=== PATIENT | female | born 1965 | race Caucasian/White ===

== ENCOUNTER 2017-09-13 05:56 | Emergency (ER) | payer BC, OTHER ==
--- NOTE | 2017-09-13 06:20 | ERNOTE ---
Dizziness ER Record Date of Service: 09/13/17 Time Seen by Provider: 09/13/17 06:18 Source: patient Exam Limitations: no limitations Immunizations: IMMUNIZATION HX Immunizations Up to Date Yes History of Influenza Vaccine No Hx Pneumococcal Vaccination No Allergies/Adverse Reactions: Allergies Allergy/AdvReac Type Severity Reaction Status Date / Time No Known Allergies Allergy Unverified 09/19/12 18:05 Home Medications: HOME MEDICATIONS Acetaminophen [Tylenol Extra Strength] 1,000 mg PO PRN 09/19/12 [Last Taken 19/09 16:45] Acetaminophen/Diphenhydramine [Tylenol Pm Ex-Strength Caplet] 1 each PO HS 09/19 [Last Taken Unknown] Ibuprofen [Motrin] 400 mg PO PRN 09/19/12 [Last Taken 09/19/12 16:00] Triamterene/Hydrochlorothiazid [Dyazide 37.5/25] 1 cap PO QDIPM #20 capsule 05/23 [Last Taken Unknown] - History of Present Illness Narrative: 52 year old that had the sudden onset of being light headed and feeling weak in the calves. Denies any changes in vision, chest pain, shortness of breath, n/v, fevers, near syncope or focal weakness. She was able to walk up the stairs at her job, and felt mildly out of breath after reaching the top of the landing. Earlier experienced dry mouth and drank water. There was concern about her blood pressure since she has not been treating it. Date (Duration): 09/13/17 Time (Timing): 06:22 Timing and Duration: sudden onset Noted on awakening:: No Severity: max: moderate Severity: currently: mild Associated Symptoms: Present: weakness. Absent: nausea, vomiting, headache, numbness Sense of movement: Present: none Decreased ability to stand/walk:: Present: walks w/o assistance. Absent: cannot walk, cannot stand Usually:: Present: walks w/o assistance Modifying Factors - (Improves): Reports: nothing Modifying Factors - (Worsens): Reports: nothing Review of Systems - Review of Systems Constitutional: Present: no symptoms reported EYE: Present: no symptoms reported ENT: Present: no symptoms reported Respiratory: Present: no symptoms reported Cardiology: Present: no symptoms reported Gastrointestinal/Abdominal: Present: no symptoms reported Genitourinary: Present: no symptoms reported Musculoskeletal: Present: no symptoms reported Skin: Present: no symptoms reported Neurological: Present: no symptoms reported Endocrine: Present: no symptoms reported Hematologic/Lymphatic: Present: no symptoms reported Psych: Present: no symptoms reported - Patient's Past Medical History Patient History - Medical: No pertinent hx Patient History - Cardiac/Respiratory: Hypertension Patient History - Cancer: No Hx of Cancer Patient History - Surgical Procedures: Patient History - Other: None LMP (females 10-50): last week - Social History Living Situations: spouse Psych History: No pertinent hx Smoking Status: Never smoker Have you smoked in the past 12 months: No Do you dip or chew tobacco: No Alcohol Use: none Drug Use: none - Immunizations Immunizations Up to Date: Yes Hx Pneumococcal Vaccination: No History of Influenza Vaccine: No Physical Exam - Physical Exam General Appearance: Present: no apparent distress Head Exam: Present: normal inspection Eye Exam: Normal inspection: bilateral, PERRL: bilateral, EOMI: bilateral Ears, Nose, Throat: Present: normal ENT inspection Neck: Present: normal inspection Respiratory: Present: no respiratory distress Cardiovascular/Chest: Present: regular rate, rhythm Gastrointestinal/Abdominal: Present: nondistended Back Exam: Present: normal inspection Extremity Exam: Present: normal inspection Neurological Exam: Present: alert, oriented, normal mood/affect Skin Exam: Present: normal color, warm/dry ED Progress - Vital Signs Patient's Vital Signs:: I have reviewed the patient's vital signs. Vital Signs: Vital Signs 09/13/17 06:00 Temperature 37.0 C Pulse Rate 94 Respiratory 16 Rate Blood Pressure 187/107 O2 Sat by Pulse 99 Oximetry - EKG EKG: NSR EKG read: Interp. by me EKG Comments: rate 93, normal axis - Progress/Reassessment Chief Complaint: Dizziness Progress:: Improved Progress Note-Subjective: 09/13/17 07:26 Feels much better after drinking over one liter of water. 09/13/17 07:27 Will be started on Dyazide one cap per day. It was strongly recommended that she see a physician for follow up in the next 2-3 weeks. Departure Clinical Impression: Hypertension - Departure Disposition: Home self-care Condition: Fair Instructions: Hypertension, [id number] Print Language: Australian Additional Instructions: Check your blood pressure at least once per week and record the results. You will need to find a physician for follow up in the next 2-3 weeks. The ideal blood pressure should be below 130/70. Prescriptions: Triamterene/Hydrochlorothiazid [Dyazide 37.5/25] 1 cap PO QDIPM #20 capsule
[2017-09-13 06:25] LABS: Hemoglobin 14.7 gm/dL (12.5-16.0); Mean Corpuscular Hemoglobin 30.4 pg (27-31); Mean Corpuscular Hgb Conc 34.2 g/dl (32-36); Neutrophil # 5.8 K/mm3 (1.3-6.0); Neutrophil % 62.8 % (42-75.0); Platelet Count 304 K/mm3 (150-450); Red Blood Count 4.83 M/mm3 (4.2-5.4); Red Cell Distribution Width 12.8 % (11.5-14.0); White Blood Count 9.2 K/mm3 (4.0-10.5)
[2017-09-13 06:32] LABS: Anion Gap 12.4 mmol/L (6.8-13.8); BUN/Creatinine Ratio 32.1 (9.0-21.6); Calcium * 9.4 mg/dL (7.9-10.9); Carbon Dioxide 25.4 mmol/L (24-32.6); Potassium 3.8 mmol/L (3.4-4.6)
[2017-09-13 08:01] VITALS: BP 148/96
== END 2017-09-13 07:50 | disposition home or self-care (01) ==
LOC: ER 05:56
DX: I10 Essential (primary) hypertension (principal)

== ENCOUNTER 2017-11-02 12:56 | Emergency (ER) | payer BC, OTHER ==
[2017-11-02] MEDS ORDERED: MAGNESIUM CITRATE 300 ML BTL PO ONE (13:51)
--- NOTE | 2017-11-02 13:51 | ERNOTE ---
Abdominal HPI - Narrative Date of Service: 11/02/17 - General Chief Complaint: Constipation Time Seen by Provider: 11/02/17 13:04 Source: patient - Immun/Allergies/Home Medications Immunizatons: IMMUNIZATION HX Immunizations Up to Date Yes History of Influenza Vaccine No Hx Pneumococcal Vaccination No Allergies/Adverse Reactions: Allergies No Known Allergies Allergy (Unverified 09/19/12 18:05) Home Medications: HOME MEDICATIONS Acetaminophen [Tylenol Extra Strength] 1,000 mg PO PRN 09/19/12 [Last Taken 19/09 16:45] Acetaminophen/Diphenhydramine [Tylenol Pm Ex-Strength Caplet] 1 each PO HS 09/19 [Last Taken Unknown] Ibuprofen [Motrin] 400 mg PO PRN 09/19/12 [Last Taken 09/19/12 16:00] Triamterene/Hydrochlorothiazid [Dyazide 37.5/25] 2 cap PO QDIPM 11/02/17 [Last Taken Unknown] - History of Present Illness Narrative: patient presents for constipation and urinary frequency. patient states she feels like she has to pee but is unable to. patient also states she feels like she needs to have a BM but is unable to and is afraid to strain because of she dosnt want to get hemorrhoids. Date (Duration): 11/02/17 Timing: constant Quality: moderate Review of Systems - Review of Systems Constitutional: Present: See HPI EYE: Present: no symptoms reported ENT: Present: no symptoms reported Respiratory: Present: no symptoms reported Cardiology: Present: no symptoms reported Gastrointestinal/Abdominal: Present: See HPI, constipation Genitourinary: Present: See HPI Musculoskeletal: Present: no symptoms reported Neurological: Present: no symptoms reported Endocrine: Present: no symptoms reported Hematologic/Lymphatic: Present: no symptoms reported Psych: Present: no symptoms reported All Other Systems: All systems neg except as marked - Patient's Past Medical History Patient History - Medical: No pertinent hx Patient History - Cardiac/Respiratory: Hypertension Patient History - Cancer: No Hx of Cancer Patient History - Surgical Procedures: Patient History - Other: None LMP (females 10-50): Menopausal - Social History Living Situations: spouse Psych History: No pertinent hx Smoking Status: Former smoker Alcohol Use: none Drug Use: none - Immunizations Immunizations Up to Date: Yes Hx Pneumococcal Vaccination: No History of Influenza Vaccine: No Physical Exam - Physical Exam General Appearance: Present: wd/wn, alert, no apparent distress Head Exam: Present: normal inspection, no evidence of injury Eye Exam: Normal inspection: bilateral Ears, Nose, Throat: Present: normal ENT inspection Neck: Present: normal inspection, nontender Respiratory: Present: no respiratory distress, normal breath sounds, no accessory muscle use, chest nontender, lungs clear Cardiovascular/Chest: Present: regular rate, rhythm, no murmur, normal peripheral pulses Gastrointestinal/Abdominal: Present: normal bowel sounds, nontender, nondistended, soft, no organomegaly Rectal Exam: Present: nontender, normal rectal tone, fecal impaction Back Exam: Present: normal inspection, normal range of motion, no CVA tenderness , no vertebral tenderness Extremity Exam: Present: normal inspection, non-tender, normal range of motion, no edema Neurological Exam: Present: alert, oriented, normal mood/affect, no motor/ sensory deficits Skin Exam: Present: normal color, warm/dry Lymphatic Exam: Present: no adenopathy ED Progress - Results and Orders Patient's Lab Results:: I have reviewed the patient's lab results. Results and Orders: negative UA - Vital Signs Patient's Vital Signs:: I have reviewed the patient's vital signs. Vital Signs: Vital Signs 11/02/17 13:02 Temperature 36.8 C Pulse Rate 98 Respiratory 16 Rate Blood Pressure 164/108 O2 Sat by Pulse 97 Oximetry - Progress/Reassessment Chief Complaint: Constipation Progress:: Re-examined Plan - Plan Plan: patient opted to gohome and treat her constipation there. patient givem mag citrate and will return to the ED if she dosnt have results. Departure Clinical Impression: Constipation Qualifiers: Constipation type: unspecified constipation type Qualified Code(s): K59.00 - Constipation, unspecified - Departure Disposition: Home self-care Condition: Good Instructions: Constipation, Adult, [id number] Additional Instructions: Patient to follow up with PCP if needed. She may return to the ED for increase in her current symptoms. Patient educated on constipation prevention. Referrals: Margot Kwon ARNP [Primary Care Provider] -
[2017-11-02] MEDS ORDERED: MAGNESIUM CITRATE 300 ML BTL ONE (13:52)
[2017-11-02 13:53] LABS: Urine Bilirubin Negative (NEGATIVE); Urine Blood Negative /ul (NEGATIVE); Urine Ketone Negative (NEGATIVE); Urine Nitrite Negative (NEGATIVE); Urine Protein Negative (NEGATIVE); Urine Specific Gravity <=1.005 SP.GR. (1.005-1.010); Urine Urobilinogen Normal (NORMAL)
[2017-11-02 13:57] LABS: Urine Appearance Clear; Urine Color Pale Yellow
[2017-11-02 13:59] LABS: Urine Bacteria None Seen; Urine RBC TRACE /hpf (0-5); Urine WBC None Seen /hpf (0-5)
[2017-11-02 15:20] VITALS: BP 142/89
== END 2017-11-02 14:14 | disposition home or self-care (01) ==
LOC: ER 12:56
DX: K59.00 Constipation, unspecified (principal); I10 Essential (primary) hypertension; Z87.891 Personal history of nicotine dependence